=== PATIENT | male | born 2000 | race Hispanic/Latino ===

== ENCOUNTER 2024-04-23 17:16 | Emergency (ER) | payer OTHER ==
[~2024-04-23] VITALS: Ht 162.6 cm; Wt 81.6 kg
[2024-04-23 17:34] VITALS: PULSE 82; RESP 16; TEMP 98.1
[2024-04-23] MEDS ORDERED: ONDANSETRON ODT4 MG SL (19:43)
[2024-04-23 19:56] VITALS: BP 138/95; PULSE 68; RESP 16; TEMP 98.3; O2SAT 99
== END 2024-04-23 19:51 | disposition home or self-care (01) ==
LOC: ER 17:55
DX: R42 Dizziness and giddiness (principal); S06.0X0A Concussion without loss of consciousness, initial encounter; V43.52XA Car driver injured in collision with other type car in traffic accident, initial encounter; Y92.488 Other paved roadways as the place of occurrence of the external cause
CPT/HCPCS: 70450; 99283